=== PATIENT | female | born 1940 | race Caucasian/White ===

== ENCOUNTER → 2016-04-08 | Outpatient (CLI) | payer MEDICARE | LOC: GMAM 17:45 | PROVIDERS: ATTEND Family Medicine | DX: N39.0 Urinary tract infection, site not specified (principal) ==

== ENCOUNTER → 2016-05-26 | Outpatient (CLI) | payer MEDICARE | END | disposition home or self-care (01) | LOC: GMAM 12:12 | PROVIDERS: ATTEND Family Medicine | DX: M81.8 Other osteoporosis without current pathological fracture (principal); E55.9 Vitamin D deficiency, unspecified ==

== ENCOUNTER → 2016-06-04 | Outpatient (CLI) | payer MEDICARE | END | disposition home or self-care (01) | LOC: GMAM 16:56 | PROVIDERS: ATTEND Family Medicine | DX: N39.0 Urinary tract infection, site not specified (principal) ==

== ENCOUNTER → 2016-06-23 | Outpatient (CLI) | payer MEDICARE | END | disposition home or self-care (01) | LOC: GMAM 10:38 | PROVIDERS: ATTEND Family Medicine | DX: Z79.899 Other long term (current) drug therapy (principal) ==

== ENCOUNTER → 2016-06-24 | Outpatient (CLI) | payer MEDICARE | END | disposition home or self-care (01) | LOC: GMAM 14:46 | PROVIDERS: ATTEND Family Medicine | DX: R10.13 Epigastric pain (principal) ==

== ENCOUNTER → 2016-09-17 | Outpatient (CLI) | payer MEDICARE | LOC: LAB.O 10:09 | DX: K75.81 Nonalcoholic steatohepatitis (NASH) (principal) ==

== ENCOUNTER → 2016-09-18 | Outpatient (CLI) | payer MEDICARE ==
--- NOTE | 2016-09-18 14:18 | US ---
EXAM DESCRIPTION: Abdomen,Complete CLINICAL HISTORY: NONALCOHOLIC STEATOHEPATITIS COMPARISON: None available. FINDINGS: Aorta: Nonaneurysmal. IVC: Visualized portions normal. Ascites: None. Pancreas: Partially obscured by overlying bowel gas but visualized portions normal. Liver: There is diffuse fatty infiltration of the liver without mass or other focal liver lesion. The liver measures just over 14 cm in length. There is no intrahepatic biliary duct dilation. Gallbladder/Common Duct: The gallbladder is surgically absent. The common duct is not dilated, measuring 3 mm diameter at the ciarra hepatis. Right Kidney: No stones, hydronephrosis, atrophy or mass. Spleen: No splenomegaly or mass. Left Kidney: No stones, hydronephrosis, atrophy or mass. IMPRESSION: Diffuse fatty infiltration of the liver and status post cholecystectomy, otherwise unremarkable exam. Electronically signed by: Nicholas Du MD 09/18/2016 2:16 PM CDT Workstation: [id number]
== END ==
LOC: US 09:14
DX: K75.81 Nonalcoholic steatohepatitis (NASH) (principal); Z90.49 Acquired absence of other specified parts of digestive tract

== ENCOUNTER → 2017-02-17 | Outpatient (CLI) | payer MEDICARE | END | disposition home or self-care (01) | LOC: GMAM 14:46 | PROVIDERS: ATTEND Family Medicine | DX: E55.9 Vitamin D deficiency, unspecified (principal) ==

== ENCOUNTER → 2017-03-10 | Outpatient (CLI) | payer MEDICARE | END | disposition home or self-care (01) | LOC: GMAJS 10:53 | PROVIDERS: ATTEND Physician Assistant | DX: N30.00 Acute cystitis without hematuria (principal) ==

== ENCOUNTER → 2017-03-11 | Outpatient (CLI) | payer MEDICARE ==
--- NOTE | 2017-03-11 17:51 | MRI ---
EXAM DESCRIPTION: Brain w/o Contrast: MRI. CLINICAL HISTORY: HEADACHES COMPARISON: CT scan dated without contrast 08/29/2011. TECHNIQUE: Multiplanar, high-field MRI unit, multiple diffusion sequences, multiple conventional sequences without contrast. FINDINGS: Multifocal bilateral foci of bright FLAIR and T2-weighted signal in the periventricular white matter and taylor-white matter junctions of the cerebral hemispheres. . Similar signal in the bilateral basal ganglia. No hemorrhage, no cerebral edema, no mass-effect. Normal signal in the brainstem and cerebellar hemispheres. No hemorrhage, no cerebral edema, no mass-effect. Concordance of the diffusion and non-diffusion sequences with no diffusion restriction. Cortical sulci, ventricles, and other CSF spaces, and the subdural spaces are normally configured. Physiologic for patient's age. No effacement or displacement. No midline shift. No extra-axial hemorrhage. Normal flow signal void in the major vessels of the [place], and the venous sinuses. IACs are symmetric bilaterally. Normal signal in the bilateral mastoid air cells. No mass effect in the bilateral cerebellopontine angles. Pituitary gland occupies approximately 50% of the sella. Base of the cerebellar tonsils is slightly above the foramen magnum. Minimal mucoperiosteal thickening in the paranasal sinuses. Small po bullosa in the left middle turbinate. The bony calvarium is intact. IMPRESSION: 1. Bilateral foci of abnormal signal in the periventricular white matter, subcortical white matter, and basal ganglia is relatively symmetric. Most likely related to cerebral microvascular disease and physiologic aging. Less likely a result of demyelinating process, sequela of migraine headaches, inflammation, or vasculitis. No hemorrhage, mass effect, midline shift, or cerebral edema. 2. Normal noncontrast diffusion study with no evidence of acute or subacute infarction or ischemia. 3. Findings of paranasal chronic sinusitis. Electronically signed by: Ang Small MD 03/11/2017 5:[address] [employer] Workstation: [id number]
--- NOTE | 2017-03-12 13:12 | US ---
EXAM DESCRIPTION: Liver: Ultrasound. CLINICAL HISTORY: 76 years Female, ELEVATED LFT'S COMPARISON: Complete abdominal ultrasound September 18, 2016. TECHNIQUE: Standard transabdominal scanning: Two-dimensional and Doppler modes. FINDINGS: Pancreas well visualized and unremarkable. Minimally increased echogenicity liver. Homogeneous echoes. Craniocaudal diameter of the right lobe 14.2 cm. No intrahepatic biliary dilatation. Gallbladder surgically absent. No fluid in Morison's pouch. Common bile duct 4.8 mm. Normal ultrasound of the kidney. Long axis diameter 10.5 cm. No hydronephrosis. IMPRESSION: Minimal steatosis of the liver normal size. This can be due to a variety of metabolic and toxic conditions and obesity. Normal caliber of intrahepatic and extra hepatic ducts. No ascites. Electronically signed by: Ang Small MD 03/12/2017 1:11 PM [facility]
== END | disposition home or self-care (01) ==
LOC: MRI 08:00
PROVIDERS: ATTEND Family Medicine
DX: R51 Headache (principal); R94.5 Abnormal results of liver function studies

== ENCOUNTER → 2017-05-22 | Outpatient (CLI) | payer MEDICARE | LOC: GMAM 10:24 | PROVIDERS: ATTEND Family Medicine | DX: E53.8 Deficiency of other specified B group vitamins (principal); M10.9 Gout, unspecified; E55.9 Vitamin D deficiency, unspecified ==

== ENCOUNTER → 2017-05-26 | Outpatient (CLI) | payer MEDICARE | LOC: LAB.O 09:03 | PROVIDERS: ATTEND Family Medicine | DX: R19.7 Diarrhea, unspecified (principal) ==

== ENCOUNTER → 2017-05-27 | Outpatient (CLI) | payer MEDICARE, OTHER | LOC: LAB.O 09:22 | PROVIDERS: ATTEND Family Medicine | DX: R19.7 Diarrhea, unspecified (principal) ==

== ENCOUNTER → 2017-05-28 | Outpatient (CLI) | payer OTHER | LOC: LAB.O 08:49 | PROVIDERS: ATTEND Family Medicine | DX: R19.7 Diarrhea, unspecified (principal) ==

== ENCOUNTER → 2017-09-03 | Outpatient (CLI) | payer OTHER ==
--- NOTE | 2017-09-03 13:18 | MRI ---
EXAM DESCRIPTION: Lumbar Spine w/o Contrast : Magnetic Resonance Imaging. CLINICAL HISTORY: RADICULOPATHY LUMBAR REGION COMPARISON: MRI lumbar spine without and with gadolinium IV contrast 11/20/2015. TECHNIQUE: Multiplanar, multiple standard sequences, non contrast MRI, lumbar spine. FINDINGS: L5-S1: Tiny posterior bulge of the disc into the canal. Right flavum ligament hypertrophy and facet arthrosis. Mild canal narrowing. Moderate right foraminal narrowing and mild left foraminal narrowing. L4-5: Disc desiccation and minimal disc space loss. Modic type II endplate reactive changes in the midline and more to the left than right with small Schmorl's nodes. Anterior disc bulging and spurs. Trace anterolisthesis. Posterior broad-based 3 mm disc bulge with disc osteophyte encroachment on the left foramen abutting the exiting left L4 nerve. Moderate right foraminal narrowing. Bilateral facet arthrosis with mild canal narrowing. L3-4: Minimal disc desiccation with anterior type II endplate reactive changes bulging disc and spurs. Posterior broad-based small disc bulge. Bilateral facet arthrosis. Borderline left foraminal stenosis and moderate right foraminal narrowing. Mild canal narrowing. L2-3: Disc desiccation and minimal disc space loss. Minimal anterior bulging. Bilateral flavum ligament hypertrophy and facet joint effusion. Moderate narrowing of the right foramen and left foramen patent. Mild canal narrowing. L1-2: Minimal disc desiccation and disc space preserved. No bulging. Canal and foramina patent. Posterior elements unremarkable. Conus terminates just above this level. T12-L1: Normal signal in the disc and disc space. Posterior elements are unremarkable. Canal and foramina are patent. L2-L5 dextroscoliosis. Lordosis maintained. Paravertebral soft tissues paraspinal muscle atrophy.. Normal marrow signal in the remaining vertebral bodies and the posterior elements. Vertebral bodies are not compressed at any level. IMPRESSION: 1. Multiple levels of disc desiccation and bulging, multiple levels of spondylosis and foraminal narrowing. Also ligament flavum hypertrophy and facet arthrosis at multiple levels. Canal narrowing. 2. Moderate right foraminal narrowing and mild left foraminal narrowing at L5-S1 is stable. 3. Diffuse moderate spondylosis at L4-5 more on the left than the right with disc space loss and trace anterolisthesis. Disc osteophyte complex encroachment on the left foramen and exiting left L4 nerve stable since the prior study. Correlate for radiculopathy. 4. Bilateral facet arthrosis at L3-4 with bulging disc and borderline left foraminal stenosis stable since the prior study. Correlate for left L3 radiculopathy. Electronically signed by: Ang Small MD 09/03/2017 1:17 PM CDT
== END ==
LOC: MRI 09:00
PROVIDERS: ATTEND Physician Assistant
DX: M54.16 Radiculopathy, lumbar region (principal); M47.896 Other spondylosis, lumbar region; M51.26 Other intervertebral disc displacement, lumbar region

== ENCOUNTER → 2017-11-27 | Outpatient (CLI) | payer OTHER ==
--- NOTE | 2017-11-29 16:20 | US ---
US THYROID CLINICAL STATEMENT: NODULE. COMPARISON: None FINDINGS: Size right thyroid lobe: 4.7 x 1.7 x 1.4 cm Size left thyroid lobe: 5.0 x 1.6 x 1.5 cm Size isthmus: 0.2 cm Estimated total number of nodules greater than or equal to 1 cm: 1 Nodule 1: Size: 0.3 x 0.3 x 0.3 cm Location: Right Mid Composition: cystic or completely cystic: 0 points Echogenicity: very hypoechoic: 3 points Shape: wider than tall: 0 points Margins: smooth: 0 points Echogenic foci: none: 0 points ACR Total Points: 3; ACR TI-RADS risk category: TR3 - mildly suspicious nodule. Nodule 2: Size: 0.4 x 0.3 x 0.3 cm Location: Right Mid Composition: solid or almost completely solid: 2 points Echogenicity: hypoechoic: 2 points Shape: wider than tall: 0 points Margins: smooth: 0 points Echogenic foci: macrocalcifications: 1 point ACR Total Points: 4; ACR TI-RADS risk category: TR4 - moderately suspicious nodule. Nodule 3: Size: 1.5 x 1.1 x 0.9 cm Location: Left Lower Composition: solid or almost completely solid: 2 points Echogenicity: hypoechoic: 2 points Shape: wider than tall: 0 points Margins: smooth: 0 points Echogenic foci: none: 0 points ACR Total Points: 4; ACR TI-RADS risk category: TR4 - moderately suspicious nodule. The soft tissue around the thyroid gland shows no evidence of distinct solid mass or cyst. No parenchymal edema or calcifications or abnormal vascularity. IMPRESSION: 1. Nodule 1: ACR TI-RADS 2017 Category 3. Recommend: No further follow-up. 2. Nodule 2: ACR TI-RADS 2017 Category 4. Recommend: No further follow-up. 3. Nodule 3: ACR TI-RADS 2017 Category 4. Recommend: Ultrasound-guided fine needle aspiration . Please see ACR TI-RADS 2017 recommendations below.* Soft tissue around the thyroid gland is unremarkable. *ACR TI-RADS 2017 Recommendations: TR1: No FNA or follow up TR2: No FNA or follow up TR3: FNA if >/= 2.5 cm, follow up if 1.5 - 2.4 cm in 1, 3, and 5 years TR4: FNA if >/= 1.5 cm, follow up if 1.0 - 1.4 cm in 1, 2, 3, and 5 years TR5: FNA if >/= 1.0 cm, follow up if 0.5 - 0.9 cm every year for 5 years ACR TI-RADS recommends that no more than two nodules with the highest ACR TI-RADS total point should be biopsied and no more than four nodules should be followed. Electronically signed by: Ang Small MD 11/29/2017 4:18 PM CDT
== END ==
LOC: GMAM 13:17
PROVIDERS: ATTEND Family Medicine
DX: E04.1 Nontoxic single thyroid nodule (principal); H57.12 Ocular pain, left eye

== ENCOUNTER → 2017-12-09 | Outpatient (CLI) | payer OTHER | LOC: GMAM 09:59 | PROVIDERS: ATTEND Family Medicine | DX: E04.1 Nontoxic single thyroid nodule (principal); M81.0 Age-related osteoporosis without current pathological fracture ==

== ENCOUNTER → 2018-05-21 | Outpatient (CLI) | payer OTHER | LOC: GMAM 10:46 | PROVIDERS: ATTEND Family Medicine | DX: E53.8 Deficiency of other specified B group vitamins (principal); E04.1 Nontoxic single thyroid nodule; M10.9 Gout, unspecified; E55.9 Vitamin D deficiency, unspecified ==

== ENCOUNTER → 2018-12-22 | Outpatient (CLI) | payer OTHER | LOC: GMAM 16:33 | PROVIDERS: ATTEND Family Medicine | DX: J44.1 Chronic obstructive pulmonary disease with (acute) exacerbation (principal) ==

== ENCOUNTER → 2019-04-28 | Outpatient (CLI) | payer OTHER ==
--- NOTE | 2019-04-29 08:51 | RAD ---
EXAM DESCRIPTION: Chest,2 Views CLINICAL HISTORY: ACUTE BRONCHITIS UNSPEC COMPARISON: Previous study January 09, 2011 TECHNIQUE: PA/lateral FINDINGS: There is no acute appearing cardiac or pulmonary abnormality. Heart size is normal with normal pulmonary vascularity. No pleural effusion or pneumothorax. Lungs are clear with no consolidating infiltrate. Lateral view shows intact sternum and T-spine. IMPRESSION: No acute process is identified in the chest. Electronically signed by: Alexi Nixon MD 04/29/2019 8:50 AM [facility]
== END ==
LOC: RAD 15:11
PROVIDERS: ATTEND Internal Medicine Rheumatology
DX: J20.9 Acute bronchitis, unspecified (principal)

== ENCOUNTER → 2019-05-11 | Outpatient (CLI) | payer OTHER ==
--- NOTE | 2019-05-11 18:01 | CT ---
EXAM DESCRIPTION: Chest w/o Contrast : Computed Tomography. CLINICAL HISTORY: 78 years Female RECURRENT BRONCHITIS COMPARISON: Chest x-ray April 2004. TECHNIQUE: Spiral-axial scans at 5 x 5 mm intervals through the lungs and thorax without IV contrast. 2.5 x 5 mm lung algorithm axial reconstructions. Coronal and sagittal 2.0 Mm reconstructions. Total Exam DLP: 613.6 mGy-cm. This exam was performed according to our departmental dose-optimization program which includes automated exposure control, adjustment of the mA and/or kV according to patient size and/or use of iterative reconstruction technique; to reduce radiation dose to as low as reasonably achievable (ALARA). Nodule measurements under 10 mm are given as mean value of 3 axes diameters. FINDINGS: Lungs and large airways: Minimal perihilar peribronchial wall cuffing bilaterally. Bibasilar pleural-parenchymal scarring. No abnormal nodules and no masses bilaterally. No focal infiltrates. Pleural spaces: Bilateral thickening most prominent at the apices. Otherwise negative. Mediastinum and Jenifer: Evaluation limited due to lack of IV contrast small lymph nodes. Airway cartilage calcifications. No dominant solid mass. Great vessels and Heart: Evaluation limited due to lack of IV contrast. Coronary artery calcifications. Atherosclerotic calcifications in several brachiocephalic vessels aortic arch and descending thoracic aorta. Slight ectasia of the aortic arch. Soft tissues of neck base, axillae, and chest wall: Evaluation limited due to lack of IV contrast. Small lymph nodes bilateral axilla. Upper abdomen: No free air or free fluid in the included peritoneal space. Atherosclerotic calcifications. Normal density and size of the spleen and adrenal glands. Surgical clips gallbladder fossa with no fluid. Osseous structures: Early spondylosis in the thoracic spine particularly T10-T11 level. Minimal arthrosis in these sternoclavicular joints and glenohumeral joints. No destructive or blastic lesions. IMPRESSION: Perihilar peribronchial wall thickening is evidence of bronchitis without infiltrate. No abnormal nodules and no masses. Apical pleural thickening and bilateral pleural-parenchymal scarring. No CT follow-up is recommended. Electronically signed by: Ang Small MD 05/11/2019 6:00 PM CDT
== END ==
LOC: CT 09:00
PROVIDERS: ATTEND Internal Medicine Rheumatology
DX: J41.0 Simple chronic bronchitis (principal); J98.4 Other disorders of lung

== ENCOUNTER → 2019-06-21 | Outpatient (CLI) | payer OTHER | LOC: GMAM 11:43 | PROVIDERS: ATTEND Family Medicine | DX: E55.9 Vitamin D deficiency, unspecified (principal); M10.9 Gout, unspecified; R73.9 Hyperglycemia, unspecified; I10 Essential (primary) hypertension ==

== ENCOUNTER → 2019-06-24 | Outpatient (CLI) | payer OTHER | LOC: LAB.O 10:29 | PROVIDERS: ATTEND Internal Medicine Infectious Disease | DX: J15.7 Pneumonia due to Mycoplasma pneumoniae (principal) ==

== ENCOUNTER → 2019-07-29 | Outpatient (CLI) | payer OTHER | LOC: LAB.O 11:08 | PROVIDERS: ATTEND Internal Medicine Infectious Disease | DX: J15.7 Pneumonia due to Mycoplasma pneumoniae (principal) ==

== ENCOUNTER → 2019-08-26 | Outpatient (CLI) | payer OTHER | LOC: GMAM 11:39 | PROVIDERS: ATTEND Family Medicine | DX: Z79.899 Other long term (current) drug therapy (principal) ==

== ENCOUNTER → 2019-09-28 | Outpatient (CLI) | payer OTHER ==
--- NOTE | 2019-09-29 11:47 | MRI ---
PROVIDED CLINICAL HISTORY/REASON FOR EXAM: SPINAL STENOSIS TECHNIQUE: Multiplanar, multisequence MRI examination performed of the lumbar spine without intravenous contrast material. COMPARISON: September 03, 2017 FINDINGS: Five lumbar type vertebra are assumed. The designated L5/S1 disc space is at axial T2 image 2. Alignment: No acute subluxation. Fracture: None present. Paraspinal Soft Tissues: Unremarkable. Retroperitoneum: Visible structures are unremarkable. Conus Medullaris: Termination at L1 level. Morphology is normal. L1/2: Disc desiccation. Small, increased diffuse symmetric disc bulge. Bilateral facet hypertrophy. No significant central canal stenosis. No significant neural foraminal narrowing. L2/3: Disc desiccation. Increased, diffuse symmetric disc bulge. Bilateral facet hypertrophy with thickening of the ligamentum flavum. Small bilateral facet effusions. Mild central canal stenosis. Mild bilateral neural foraminal narrowing. Small posterior annular fissure. L3/4: Disc desiccation with loss of disc space height and endplate degenerative change. Diffuse symmetric disc bulge osteophyte complex. Bilateral facet hypertrophy with thickening of the ligamentum flavum. Mild/moderate central canal stenosis. Severe left and moderate right neural foraminal narrowing. L4/5: Disc desiccation with loss of disc space height and endplate degenerative change. Diffuse symmetric disc bulge osteophyte complex. Bilateral facet hypertrophy with thickening of the ligamentum flavum. No significant central canal stenosis. Moderate left and mild right lateral recess stenosis. Moderate right and severe left neural foraminal narrowing. L5/S1: Disc desiccation with loss of disc space height and endplate degenerative change. Small symmetric disc bulge with a superimposed right paracentral disc protrusion which measures 0.8 cm TV by 0.5 cm AP which results in severe right lateral recess stenosis and likely impingement upon the traversing S1 nerve root. No significant central canal stenosis. Bilateral facet hypertrophy. Moderate to severe bilateral neural foraminal narrowing. IMPRESSION: Progressed multilevel lumbar spondylosis with areas of central canal and neural foraminal narrowing as above. Electronically signed by: Derick Barr MD 09/29/2019 11:45 AM CDT
== END ==
LOC: MRI 10:00
PROVIDERS: ATTEND Family Medicine
DX: M48.061 Spinal stenosis, lumbar region without neurogenic claudication (principal); M47.896 Other spondylosis, lumbar region

== ENCOUNTER → 2019-12-27 | Outpatient (CLI) | payer OTHER | LOC: GMAM 11:00 | PROVIDERS: ATTEND Family Medicine | DX: M10.9 Gout, unspecified (principal); E55.9 Vitamin D deficiency, unspecified; I10 Essential (primary) hypertension ==

== ENCOUNTER → 2020-02-13 | Outpatient (CLI) | payer OTHER | LOC: GMAM 14:21 | PROVIDERS: ATTEND Family Medicine | DX: M1A.09X0 Idiopathic chronic gout, multiple sites, without tophus (tophi) (principal) ==

== ENCOUNTER → 2020-02-29 | Outpatient (CLI) | payer OTHER | LOC: GMAM 16:50 | PROVIDERS: ATTEND Family Medicine | DX: E83.42 Hypomagnesemia (principal); M06.89 Other specified rheumatoid arthritis, multiple sites; M10.9 Gout, unspecified; M81.8 Other osteoporosis without current pathological fracture ==

== ENCOUNTER → 2020-03-26 | Outpatient (CLI) | payer OTHER | LOC: YCFC.O 13:02 | PROVIDERS: ATTEND Nurse Practitioner Family | DX: Z20.828 Contact with and (suspected) exposure to other viral communicable diseases (principal) ==

== ENCOUNTER 2020-04-30 05:35 | Day surgery (SDC) | payer OTHER ==
[2020-04-30] MEDS ORDERED: LIDOCAINE 1% 10 ML VIAL INJ ONE (07:05)
[2020-04-30] MEDS ORDERED: DEXAMETHASONE INJ 10 MG/ML VIAL ONE (07:06)
[2020-04-30] MEDS ORDERED: BUPIVACAINE 0.5% 30 ML VIAL INJ ONE (07:06)
[2020-04-30] MEDS ORDERED: BETAMETHASONE ACETATE/BETAMETH 6 MG/ML VIAL IM ONE (07:06)
== END 2020-04-30 11:35 | disposition home or self-care (01) ==
LOC: AMB 05:35
PROVIDERS: ATTEND Family Medicine Sports Medicine
DX: M54.5 Low back pain (principal); M54.16 Radiculopathy, lumbar region; M47.896 Other spondylosis, lumbar region; E78.1 Pure hyperglyceridemia; J44.9 Chronic obstructive pulmonary disease, unspecified; M10.9 Gout, unspecified; Z90.710 Acquired absence of both cervix and uterus; Z82.49 Family history of ischemic heart disease and other diseases of the circulatory system; Z88.8 Allergy status to other drugs, medicaments and biological substances; Z79.899 Other long term (current) drug therapy
CPT/HCPCS: 64483; 64484; 76000; J1100